=== PATIENT | male | born 1980 ===

== ENCOUNTER 2021-06-02 13:10 | Emergency (ER) | payer OTHER ==
[~2021-06-02] VITALS: Ht 175.3 cm; Wt 76.2 kg
[2021-06-02 13:14] VITALS: BP 118/72
[2021-06-02] MEDS ORDERED: IBUPROFEN 800 MG TAB PO ONE (14:45)
[2021-06-02] MEDS ORDERED: TETANUS-DIPTH-ACEL PERTUSSIS 0.5ML SYR Tdap IM ONE (14:45)
== END 2021-06-02 15:06 | disposition home or self-care (01) ==
LOC: ER 13:10 → EDBD 13:10 → ER 14:52
DX: S61.032A Puncture wound without foreign body of left thumb without damage to nail, initial encounter (principal); W34.09XA Accidental discharge from other specified firearms, initial encounter; Y93.89 Activity, other specified; Y92.89 Other specified places as the place of occurrence of the external cause; Y99.0 Civilian activity done for income or pay
CPT/HCPCS: 73130; 90471; 90715